=== PATIENT | male | born 2000 | race Caucasian/White ===

== ENCOUNTER → 2024-06-02 | Outpatient (CLI) | payer BC ==
--- NOTE | 2024-06-02 16:28 | US ---
EXAMINATION TYPE: US thyroid st tissue head/neck DATE OF EXAM: 06/02/2024 COMPARISON: NONE CLINICAL INDICATION: Male, 24 years old with history of E04.1 NONTOXIC SINGLE THYROID NODULE; burning /tingling sensation GLAND SIZE: Right Lobe: 4.2 x 1.7 x 1.8 cm Overall Parenchyma: heterogeneous Left Lobe: 4.4 x 1.5 x 1.5 cm Overall Parenchyma: heterogeneous Isthmus Thickness: 0.4 cm NODULES RIGHT: # of nodules measured on right: 0 - subcentimeter colloid cysts noted LEFT: # of nodules measured on left: 0 - subcentimeter colloid cysts noted ISTHMUS: # of nodules measured in the isthmus: 0 Bilateral neck scanned, no evidence of lymphadenopathy. IMPRESSION: Unremarkable thyroid ultrasound without discrete suspicious nodule.
== END | disposition home or self-care (01) ==
LOC: RADUSWWP 15:53
PROVIDERS: ATTEND Family Medicine
DX: E04.1 Nontoxic single thyroid nodule (principal)
CPT/HCPCS: 76536